=== PATIENT | male | born 1970 | race African-American/Black ===

== ENCOUNTER 2016-06-08 13:55 | Emergency (ER) | payer MEDICARE ==
[2014-08-27 10:08] VITALS: BMI 34.3
[~2016-06-08 13:55] MED LIST: HYDROCODON-ACE1 EAC7 PO; NEXIUM40 MG PO; PRINIVIL20 MG PO; ROBAXIN-750750 MG PO; XANAX1 MG PO
[2016-06-08 16:00] LABS: BASOPHILS 0.6 % (0.0-2.0); HEMOGLOBIN 15.1 g/dL (13.5-17.5); IMMATURE GRANULOCYTES 0.1 % (0-5); LYMPHOCYTES 27.2 % (15-50); MCH 29.3 pg (26.0-34.0); MCHC 32.1 g/dL (31.0-37.0); MCV 91.3 fL (80.0-100.0); MEAN PLATELET VOLUME 10.9 fL (7.4-10.4); MONOCYTES 9.2 % (2-11); NEUTROPHILS 59.9 % (40-80); RBC 5.15 10x6/uL (4.20-6.10); RDW 15.4 % (11.5-14.5)
[2016-06-08 16:01] LABS: PLATELET COUNT 249 10x3/uL (130-400)
[2016-06-08 16:11] LABS: CALC OSMOLALITY 284 mosm/kg (275-300); CALCIUM 8.7 mg/dL (8.5-10.1); CARBON DIOXIDE 29.6 mmol/L (21.0-32.0); CHLORIDE - SERUM 107 mmol/L (98-107); CREATININE - SERUM 1.1 mg/dL (0.6-1.3); GLUCOSE 102 mg/dL (74-106); POTASSIUM - SERUM 3.6 mmol/L (3.5-5.1); SODIUM 144 mmol/L (136-145); UREA NITROGEN 8 mg/dL (7-18); eGFR NON AFRICAN AMERICAN 76 mL/min (90-120)
== END 2016-06-08 17:08 | disposition home or self-care (01) ==
LOC: D.ER 13:55
PROVIDERS: Nurse Practitioner Acute Care
DX: J18.9 Pneumonia, unspecified organism (principal); S80.02XA Contusion of left knee, initial encounter; X58.XXXA Exposure to other specified factors, initial encounter; Y93.89 Activity, other specified; Y92.89 Other specified places as the place of occurrence of the external cause; K21.9 Gastro-esophageal reflux disease without esophagitis; I10 Essential (primary) hypertension; F17.200 Nicotine dependence, unspecified, uncomplicated

== ENCOUNTER 2016-06-18 16:28 | Emergency (ER) | payer MEDICARE ==
[2014-08-27 10:08] VITALS: BMI 34.3
[2016-06-18 19:23] LABS: BASOPHILS 0.2 % (0.0-2.0); EOSINOPHILS 0.1 % (0-7); HEMOGLOBIN 14.8 g/dL (13.5-17.5); IMMATURE GRANULOCYTES 0.3 % (0-5); LYMPHOCYTES 13.4 % (15-50); MCH 29.7 pg (26.0-34.0); MCHC 32.2 g/dL (31.0-37.0); MCV 92.2 fL (80.0-100.0); MONOCYTES 5.9 % (2-11); NEUTROPHILS 80.1 % (40-80); PLATELET COUNT 263 10x3/uL (130-400); RBC 4.99 10x6/uL (4.20-6.10); RDW 15.7 % (11.5-14.5); WBC 8.6 10x3/uL (4.8-10.8)
[2016-06-18 19:43] LABS: ALBUMIN 3.4 g/dL (3.4-5.0); ALKALINE PHOSPHATASE 40 U/L (46-116); ALT (SGPT) 19 U/L (10-68); BILIRUBIN - TOTAL 0.28 mg/dL (0.2-1.3); CALC OSMOLALITY 281 mosm/kg (275-300); CALCIUM 8.9 mg/dL (8.5-10.1); CARBON DIOXIDE 28.3 mmol/L (21.0-32.0); CHLORIDE - SERUM 106 mmol/L (98-107); GLUCOSE 137 mg/dL (74-106); POTASSIUM - SERUM 3.7 mmol/L (3.5-5.1); PROTEIN - SERUM 6.8 g/dL (6.4-8.2); SODIUM 142 mmol/L (136-145); UREA NITROGEN 5 mg/dL (7-18); eGFR NON AFRICAN AMERICAN 85 mL/min (90-120)
[2016-06-18 20:28] LABS: CKMB 0.7 U/L (0.0-3.6); CREATINE KINASE 134 UL (21-232)
[2016-06-18 20:32] LABS: TROPONIN-I < 0.017 ng/mL (0.000-0.060)
== END 2016-06-18 21:45 | disposition home or self-care (01) ==
LOC: D.ER 16:28
PROVIDERS: Nurse Practitioner Family
DX: J45.901 Unspecified asthma with (acute) exacerbation (principal); F17.200 Nicotine dependence, unspecified, uncomplicated; K21.9 Gastro-esophageal reflux disease without esophagitis; I10 Essential (primary) hypertension; R00.1 Bradycardia, unspecified

== ENCOUNTER 2016-08-10 14:56 | Emergency (ER) | payer MEDICARE ==
[2014-08-27 10:08] VITALS: BMI 34.3
== END 2016-08-10 22:24 | disposition home or self-care (01) ==
LOC: D.ER 14:56
DX: S39.012A Strain of muscle, fascia and tendon of lower back, initial encounter (principal); W01.0XXA Fall on same level from slipping, tripping and stumbling without subsequent striking against object, initial encounter; Y93.89 Activity, other specified; Y92.019 Unspecified place in single-family (private) house as the place of occurrence of the external cause; M62.830 Muscle spasm of back; F17.200 Nicotine dependence, unspecified, uncomplicated; K21.9 Gastro-esophageal reflux disease without esophagitis; I10 Essential (primary) hypertension

== ENCOUNTER 2016-08-23 17:38 | Emergency (ER) | payer MEDICARE ==
[2014-08-27 10:08] VITALS: BMI 34.3
[2016-08-23 18:25] LABS: BASOPHILS 0.4 % (0.0-2.0); EOSINOPHILS 0.3 % (0-7); HEMATOCRIT 52.6 % (42.0-54.0); HEMOGLOBIN 17.1 g/dL (13.5-17.5); IMMATURE GRANULOCYTES 0.1 % (0-5); LYMPHOCYTES 12.8 % (15-50); MCH 29.6 pg (26.0-34.0); MCHC 32.5 g/dL (31.0-37.0); MCV 91.2 fL (80.0-100.0); MONOCYTES 3.4 % (2-11); PLATELET COUNT 256 10x3/uL (130-400); RBC 5.77 10x6/uL (4.20-6.10); RDW 15.7 % (11.5-14.5); WBC 7.6 10x3/uL (4.8-10.8)
[2016-08-23 19:05] LABS: ALBUMIN 3.4 g/dL (3.4-5.0); ALKALINE PHOSPHATASE 50 U/L (46-116); ALT (SGPT) 17 U/L (10-68); CALC OSMOLALITY 276 mosm/kg (275-300); CALCIUM 9.4 mg/dL (8.5-10.1); CARBON DIOXIDE 27.1 mmol/L (21.0-32.0); CHLORIDE - SERUM 103 mmol/L (98-107); CREATININE - SERUM 0.9 mg/dL (0.6-1.3); GLUCOSE 122 mg/dL (74-106); POTASSIUM - SERUM 3.6 mmol/L (3.5-5.1); PROTEIN - SERUM 7.1 g/dL (6.4-8.2); SODIUM 139 mmol/L (136-145); UREA NITROGEN 8 mg/dL (7-18); eGFR NON AFRICAN AMERICAN > 90 mL/min (90-120)
[2016-08-23 19:12] LABS: AMYLASE - SERUM 75 U/L (25-115); CREATINE KINASE 77 UL (21-232); LIPASE 53 U/L (73-393); TROPONIN-I < 0.017 ng/mL (0.000-0.060)
== END 2016-08-23 20:54 | disposition home or self-care (01) ==
LOC: D.ER 17:38
PROVIDERS: Emergency Medicine
DX: R11.10 Vomiting, unspecified (principal); J45.909 Unspecified asthma, uncomplicated; K21.9 Gastro-esophageal reflux disease without esophagitis; I10 Essential (primary) hypertension; F17.200 Nicotine dependence, unspecified, uncomplicated

== ENCOUNTER 2017-06-26 10:16 | Emergency (ER) | payer MEDICARE ==
[2014-08-27 10:08] VITALS: BMI 34.3
== END 2017-06-26 11:17 | disposition home or self-care (01) ==
LOC: D.ER 10:16
DX: M25.461 Effusion, right knee (principal); W19.XXXA Unspecified fall, initial encounter; Y93.89 Activity, other specified; Y92.019 Unspecified place in single-family (private) house as the place of occurrence of the external cause; K21.9 Gastro-esophageal reflux disease without esophagitis; I10 Essential (primary) hypertension; F17.200 Nicotine dependence, unspecified, uncomplicated

== ENCOUNTER 2017-07-26 15:53 | Emergency (ER) | payer MEDICARE ==
[2014-08-27 10:08] VITALS: BMI 34.3
== END 2017-07-26 20:00 | disposition home or self-care (01) ==
LOC: D.ER 15:53
DX: S16.1XXA Strain of muscle, fascia and tendon at neck level, initial encounter (principal); W10.9XXA Fall (on) (from) unspecified stairs and steps, initial encounter; Y93.89 Activity, other specified; Y92.019 Unspecified place in single-family (private) house as the place of occurrence of the external cause; S29.012A Strain of muscle and tendon of back wall of thorax, initial encounter; S39.012A Strain of muscle, fascia and tendon of lower back, initial encounter; M62.838 Other muscle spasm; K21.9 Gastro-esophageal reflux disease without esophagitis; I10 Essential (primary) hypertension

== ENCOUNTER 2017-08-14 09:08 | Observation (INO) | payer MEDICARE ==
[2014-08-27 10:08] VITALS: BMI 34.3
[2017-08-14 09:30] LABS: BASOPHILS 0.6 % (0-2); EOSINOPHILS 1.3 % (0-7); HEMATOCRIT 46.2 % (42.0-54.0); HEMOGLOBIN 15.2 g/dL (13.5-17.5); IMMATURE GRANULOCYTES 0.1 % (0-5); MCH 31.3 pg (26.0-34.0); MCHC 32.9 g/dL (31.0-37.0); MCV 95.1 fL (80.0-100.0); MEAN PLATELET VOLUME 11.1 fL (7.4-10.4); PLATELET COUNT 255 10x3/uL (130-400); RBC 4.86 10x6/uL (4.20-6.10); RDW 14.5 % (11.5-14.5); WBC 7.9 10x3/uL (4.8-10.8)
[2017-08-14 09:49] LABS: ALBUMIN 3.6 g/dL (3.4-5.0); ALKALINE PHOSPHATASE 48 U/L (46-116); ALT (SGPT) 78 U/L (10-68); BILIRUBIN - TOTAL 0.36 mg/dL (0.2-1.3); CALC OSMOLALITY 281 mosm/kg (275-300); CALCIUM 9.1 mg/dL (8.5-10.1); CARBON DIOXIDE 29.6 mmol/L (21.0-32.0); CHLORIDE - SERUM 105 mmol/L (98-107); CREATININE - SERUM 0.9 mg/dL (0.6-1.3); GLUCOSE 81 mg/dL (74-106); POTASSIUM - SERUM 4.6 mmol/L (3.5-5.1); PROTEIN - SERUM 7.5 g/dL (6.4-8.2); SODIUM 142 mmol/L (136-145); UREA NITROGEN 12 mg/dL (7-18); eGFR NON AFRICAN AMERICAN > 90 mL/min (90-120)
[2017-08-14 09:57] LABS: APPEARANCE CLEAR (CLEAR); BILIRUBIN NEGATIVE (NEGATIVE); COLOR STRAW (YELLOW); GLUCOSE NEGATIVE (NEGATIVE); KETONE NEGATIVE (NEGATIVE); NITRITE NEGATIVE (NEGATIVE); PROTEIN NEGATIVE (NEGATIVE); SPECIFIC GRAVITY 1.005 (1.005-1.020); UROBILINOGEN NORMAL (NORMAL)
[2017-08-14 10:15] LABS: UDS - AMPHET POSITIVE QUAL (NEGATIVE); UDS - BARB NEGATIVE QUAL (NEGATIVE); UDS - BENZO NEGATIVE QUAL (NEGATIVE); UDS - COCAINE POSITIVE QUAL (NEGATIVE); UDS - OPIATE NEGATIVE QUAL (NEGATIVE); UDS - PCP NEGATIVE QUAL (NEGATIVE); UDS - THC POSITIVE QUAL (NEGATIVE)
== END 2017-08-14 15:45 | disposition left against medical advice (07) ==
LOC: D.ER 09:08 → OBSVTIME 12:24 → D.EDHOLD 12:24
PROVIDERS: Emergency Medicine
DX: T39.392A Poisoning by other nonsteroidal anti-inflammatory drugs [NSAID], intentional self-harm, initial encounter (principal); R45.851 Suicidal ideations; F32.9 Major depressive disorder, single episode, unspecified; F10.129 Alcohol abuse with intoxication, unspecified; F15.10 Other stimulant abuse, uncomplicated; F14.10 Cocaine abuse, uncomplicated; Y90.5 Blood alcohol level of 100-119 mg/100 ml; F12.10 Cannabis abuse, uncomplicated

== ENCOUNTER 2017-09-02 07:46 | Emergency (ER) | payer MEDICARE ==
[2014-08-27 10:08] VITALS: BMI 34.3
== END 2017-09-02 09:01 | disposition home or self-care (01) ==
LOC: D.ER 07:46
DX: S69.92XA Unspecified injury of left wrist, hand and finger(s), initial encounter (principal); W22.01XA Walked into wall, initial encounter; Y93.89 Activity, other specified; Y92.019 Unspecified place in single-family (private) house as the place of occurrence of the external cause; F17.200 Nicotine dependence, unspecified, uncomplicated

== ENCOUNTER 2017-09-20 09:27 | Emergency (ER) | payer MEDICARE ==
[2014-08-27 10:08] VITALS: BMI 34.3
== END 2017-09-20 11:27 | disposition home or self-care (01) ==
LOC: D.ER 09:27
DX: S81.811A Laceration without foreign body, right lower leg, initial encounter (principal); X58.XXXA Exposure to other specified factors, initial encounter; Y93.89 Activity, other specified; Y92.89 Other specified places as the place of occurrence of the external cause; L03.115 Cellulitis of right lower limb; E11.9 Type 2 diabetes mellitus without complications; I10 Essential (primary) hypertension

== ENCOUNTER 2017-12-18 11:17 | Emergency (ER) | payer MEDICARE ==
[2014-08-27 10:08] VITALS: Ht 177.8 cm; Wt 100.0 kg
[~2017-12-18] VITALS: Ht 177.8 cm; Wt 100.0 kg
[2017-12-18] MEDS ORDERED: GLUCOPHAGE500 MG PO ×2 (11:26→13:58)
[2017-12-18 12:09] LABS: BASOPHILS 0.3 % (0-2); EOSINOPHILS 2.6 % (0-7); HEMATOCRIT 44.2 % (42.0-54.0); HEMOGLOBIN 14.8 g/dL (13.5-17.5); IMMATURE GRANULOCYTES 0.2 % (0-5); MCH 31.6 pg (26.0-34.0); MCHC 33.5 g/dL (31.0-37.0); MCV 94.4 fL (80.0-100.0); MEAN PLATELET VOLUME 11.2 fL (7.4-10.4); MONOCYTES 7.4 % (2-11); NEUTROPHILS 62.5 % (40-80); PLATELET COUNT 210 10x3/uL (130-400); RBC 4.68 10x6/uL (4.20-6.10); RDW 14.3 % (11.5-14.5); WBC 6.6 10x3/uL (4.8-10.8)
[2017-12-18 12:22] LABS: ALBUMIN 3.2 g/dL (3.4-5.0); ALKALINE PHOSPHATASE 41 U/L (46-116); ALT (SGPT) 19 U/L (10-68); BILIRUBIN - TOTAL 0.32 mg/dL (0.2-1.3); CALC OSMOLALITY 277 mosm/kg (275-300); CALCIUM 8.6 mg/dL (8.5-10.1); CARBON DIOXIDE 31.6 mmol/L (21.0-32.0); CHLORIDE - SERUM 105 mmol/L (98-107); GLUCOSE 109 mg/dL (74-106); POTASSIUM - SERUM 3.7 mmol/L (3.5-5.1); PROTEIN - SERUM 6.5 g/dL (6.4-8.2); SODIUM 139 mmol/L (136-145); UREA NITROGEN 11 mg/dL (7-18); eGFR NON AFRICAN AMERICAN 85 mL/min (90-120)
[2017-12-18 12:31] LABS: CKMB 0.6 U/L (0.0-3.6); CREATINE KINASE 143 UL (21-232); TROPONIN-I < 0.017 ng/mL (0.000-0.060)
[2017-12-18] MEDS ORDERED: ULTRAM50 MG PO (13:53)
[2017-12-18 14:52] VITALS: BP 136/88
== END 2017-12-18 14:38 | disposition home or self-care (01) ==
LOC: D.ER 11:17
PROVIDERS: Emergency Medicine
DX: R07.89 Other chest pain (principal); R04.2 Hemoptysis; I10 Essential (primary) hypertension; K21.9 Gastro-esophageal reflux disease without esophagitis; F17.200 Nicotine dependence, unspecified, uncomplicated

== ENCOUNTER 2017-12-25 03:29 | Emergency (ER) | payer MEDICARE ==
[~2017-12-25] VITALS: Ht 177.8 cm; Wt 109.1 kg
[~2017-12-25 03:29] MED LIST changes: +GLUCOPHAGE500 MG PO; +ULTRAM50 MG PO
[2017-12-25 03:34] VITALS: Ht 177.8 cm; Wt 109.1 kg
[2017-12-25] MEDS ORDERED: HYDROCODONE-APA1 TAB PO (03:40)
[2017-12-25] MEDS ORDERED: OMEPRAZOLE40 MG PO (03:41)
[2017-12-25] MEDS ORDERED: KLONOPIN0.5 MG PO (03:41)
[2017-12-25 03:55] LABS: BASOPHILS 0.3 % (0-2); EOSINOPHILS 1.2 % (0-7); HEMATOCRIT 45.3 % (42.0-54.0); HEMOGLOBIN 15.5 g/dL (13.5-17.5); IMMATURE GRANULOCYTES 0.3 % (0-5); LYMPHOCYTES 18.7 % (15-50); MCH 32.1 pg (26.0-34.0); MCHC 34.2 g/dL (31.0-37.0); MCV 93.8 fL (80.0-100.0); MEAN PLATELET VOLUME 10.8 fL (7.4-10.4); MONOCYTES 10.2 % (2-11); NEUTROPHILS 69.3 % (40-80); PLATELET COUNT 215 10x3/uL (130-400); RBC 4.83 10x6/uL (4.20-6.10); RDW 14.5 % (11.5-14.5); WBC 11.8 10x3/uL (4.8-10.8)
[2017-12-25 04:06] LABS: APTT 26.8 SECONDS (22.8-39.4); INR 1.18 (0.85-1.17); PROTIME 14.5 SECONDS (11.6-15.0)
[2017-12-25 04:07] LABS: D-DIMER-QUANTITATIVE < 0.27 ug/mLFEU (0.20-0.54)
[2017-12-25 04:11] LABS: ALBUMIN 3.4 g/dL (3.4-5.0); ALKALINE PHOSPHATASE 45 U/L (46-116); ALT (SGPT) 26 U/L (10-68); CALC OSMOLALITY 277 mosm/kg (275-300); CALCIUM 8.3 mg/dL (8.5-10.1); CARBON DIOXIDE 30.2 mmol/L (21.0-32.0); CHLORIDE - SERUM 106 mmol/L (98-107); CREATININE - SERUM 0.9 mg/dL (0.6-1.3); GLUCOSE 102 mg/dL (74-106); POTASSIUM - SERUM 3.4 mmol/L (3.5-5.1); PROTEIN - SERUM 6.8 g/dL (6.4-8.2); SODIUM 140 mmol/L (136-145); UREA NITROGEN 11 mg/dL (7-18); eGFR NON AFRICAN AMERICAN > 90 mL/min (90-120)
[2017-12-25 04:21] LABS: CKMB 0.6 U/L (0.0-3.6); CREATINE KINASE 114 UL (21-232); PRO BNP 59 pg/mL (0-125); TROPONIN-I < 0.017 ng/mL (0.000-0.060)
[2017-12-25 09:09] LABS: APPEARANCE CLEAR (CLEAR); COLOR YELLOW (YELLOW); SPECIFIC GRAVITY 1.015 (1.005-1.020)
[2017-12-25 09:10] LABS: BILIRUBIN NEGATIVE (NEGATIVE); GLUCOSE NEGATIVE (NEGATIVE); KETONE NEGATIVE (NEGATIVE); NITRITE NEGATIVE (NEGATIVE); PROTEIN NEGATIVE (NEGATIVE); UROBILINOGEN NORMAL (NORMAL)
[2017-12-25 09:11] LABS: BACTERIA FEW /hpf (NONE SEEN); EPITHELIAL CELLS OCC /hpf (0-5); RED CELLS - URINE 0-5 /hpf (0-5); WHITE CELLS - URINE OCC /hpf (0-5)
[2017-12-25 10:57] VITALS: BP 116/62
== END 2017-12-25 10:58 | disposition home or self-care (01) ==
LOC: D.ER 03:29
PROVIDERS: Family Medicine
DX: R07.9 Chest pain, unspecified (principal); I10 Essential (primary) hypertension; F17.200 Nicotine dependence, unspecified, uncomplicated

== ENCOUNTER 2018-01-10 10:13 | Emergency (ER) | payer MEDICARE ==
[~2018-01-10] VITALS: Ht 177.8 cm; Wt 106.8 kg
[~2018-01-10 10:13] MED LIST changes: +HYDROCODONE-APA1 TAB PO; +KLONOPIN0.5 MG PO; +OMEPRAZOLE40 MG PO
[2018-01-10 10:39] VITALS: Ht 177.8 cm; Wt 106.8 kg
[2018-01-10] MEDS ORDERED: NORCO 7.5/325 T1 TA1 PO (12:15)
[2018-01-10 12:40] VITALS: BP 146/86
== END 2018-01-10 12:40 | disposition home or self-care (01) ==
LOC: D.ER 10:13
DX: S89.91XA Unspecified injury of right lower leg, initial encounter (principal); W10.9XXA Fall (on) (from) unspecified stairs and steps, initial encounter; Y93.89 Activity, other specified; Y92.019 Unspecified place in single-family (private) house as the place of occurrence of the external cause; S93.401A Sprain of unspecified ligament of right ankle, initial encounter; E11.9 Type 2 diabetes mellitus without complications; F17.200 Nicotine dependence, unspecified, uncomplicated; M25.571 Pain in right ankle and joints of right foot

== ENCOUNTER 2018-02-08 10:17 | Emergency (ER) | payer MEDICARE ==
[~2018-02-08] VITALS: Ht 177.8 cm; Wt 100.0 kg
[~2018-02-08 10:17] MED LIST changes: +NORCO 7.5/325 T1 TA1 PO
[2018-02-08 10:21] VITALS: Ht 177.8 cm; Wt 100.0 kg
[2018-02-08 11:57] LABS: BASOPHILS 0.4 % (0-2); EOSINOPHILS 1.9 % (0-7); HEMATOCRIT 44.5 % (42.0-54.0); HEMOGLOBIN 15.3 g/dL (13.5-17.5); IMMATURE GRANULOCYTES 0.1 % (0-5); LYMPHOCYTES 23.4 % (15-50); MCH 31.7 pg (26.0-34.0); MCHC 34.4 g/dL (31.0-37.0); MCV 92.1 fL (80.0-100.0); MEAN PLATELET VOLUME 10.3 fL (7.4-10.4); MONOCYTES 5.5 % (2-11); NEUTROPHILS 68.7 % (40-80); PLATELET COUNT 230 10x3/uL (130-400); RBC 4.83 10x6/uL (4.20-6.10); RDW 14.5 % (11.5-14.5); WBC 6.8 10x3/uL (4.8-10.8)
[2018-02-08 12:08] LABS: ALBUMIN 3.4 g/dL (3.4-5.0); ALKALINE PHOSPHATASE 63 U/L (46-116); ALT (SGPT) 25 U/L (10-68); BILIRUBIN - TOTAL 0.52 mg/dL (0.2-1.3); CALC OSMOLALITY 279 mosm/kg (275-300); CALCIUM 8.1 mg/dL (8.5-10.1); CARBON DIOXIDE 26.2 mmol/L (21.0-32.0); CHLORIDE - SERUM 106 mmol/L (98-107); CREATININE - SERUM 0.8 mg/dL (0.6-1.3); GLUCOSE 81 mg/dL (74-106); POTASSIUM - SERUM 3.5 mmol/L (3.5-5.1); PROTEIN - SERUM 6.8 g/dL (6.4-8.2); SODIUM 142 mmol/L (136-145); UREA NITROGEN 6 mg/dL (7-18); eGFR NON AFRICAN AMERICAN > 90 mL/min (90-120)
[2018-02-08 12:09] VITALS: BP 144/91
[2018-02-08 12:19] LABS: AMYLASE - SERUM 34 U/L (25-115); CKMB 1.3 U/L (0.0-3.6); CREATINE KINASE 408 UL (21-232); TROPONIN-I < 0.017 ng/mL (0.000-0.060)
[2018-02-08 12:20] LABS: LIPASE 48 U/L (73-393)
== END 2018-02-08 14:40 | disposition left against medical advice (07) ==
LOC: D.ER 10:17
PROVIDERS: Family Medicine
DX: R07.9 Chest pain, unspecified (principal); I25.10 Atherosclerotic heart disease of native coronary artery without angina pectoris; E11.9 Type 2 diabetes mellitus without complications; K21.9 Gastro-esophageal reflux disease without esophagitis; F17.200 Nicotine dependence, unspecified, uncomplicated

== ENCOUNTER 2019-08-10 11:44 | Inpatient (IN) | payer MEDICARE ==
[~2019-08-10] VITALS: Ht 177.8 cm; Wt 117.9 kg
[2019-08-10 13:13] LABS: BASOPHILS 0.5 % (0-2); EOSINOPHILS 0.8 % (0-7); HEMOGLOBIN 17.9 g/dL (13.5-17.5); IMMATURE GRANULOCYTES 0.2 % (0-5); LYMPHOCYTES 20.4 % (15-50); MCH 31.6 pg (26.0-34.0); MCHC 33.1 g/dL (31.0-37.0); MCV 95.2 fL (80.0-100.0); MEAN PLATELET VOLUME 10.8 fL (7.4-10.4); MONOCYTES 9.7 % (2-11); NEUTROPHILS 68.4 % (40-80); PLATELET COUNT 230 10x3/uL (130-400); RBC 5.67 10x6/uL (4.20-6.10); RDW 15.3 % (11.5-14.5); WBC 6.4 10x3/uL (4.8-10.8)
[2019-08-10 13:21] LABS: CALC OSMOLALITY 275 mosm/kg (275-300); CALCIUM 8.8 mg/dL (8.5-10.1); CARBON DIOXIDE 29.4 mmol/L (21.0-32.0); CHLORIDE - SERUM 98 mmol/L (98-107); CREATININE - SERUM 0.9 mg/dL (0.6-1.3); GLUCOSE 108 mg/dL (74-106); INR 1.21 (0.85-1.17); POTASSIUM - SERUM 3.3 mmol/L (3.5-5.1); PROTIME 15.2 SECONDS (11.6-15.0); SODIUM 139 mmol/L (136-145); UREA NITROGEN 5 mg/dL (7-18); eGFR NON AFRICAN AMERICAN > 90 mL/min (90-120)
[2019-08-10 13:22] LABS: APTT 53.8 SECONDS (22.8-39.4)
[2019-08-10 13:38] LABS: ALBUMIN 3.7 g/dL (3.4-5.0); ALKALINE PHOSPHATASE 72 U/L (30-120); ALT (SGPT) 19 U/L (10-68); BILIRUBIN - TOTAL 0.37 mg/dL (0.2-1.3); CKMB 0.9 U/L (0.0-3.6); CREATINE KINASE 305 UL (21-232); PROTEIN - SERUM 7.7 g/dL (6.4-8.2)
[2019-08-10 13:40] LABS: TROPONIN-I < 0.017 ng/mL (0.000-0.060)
[2019-08-10 14:14] LABS: BILIRUBIN NEGATIVE (NEGATIVE); GLUCOSE NEGATIVE (NEGATIVE); KETONE NEGATIVE (NEGATIVE); NITRITE NEGATIVE (NEGATIVE); SPECIFIC GRAVITY 1.005 (1.005-1.020); UROBILINOGEN NORMAL (NORMAL)
--- NOTE | 2019-08-10 15:05 | NUR ---
REPORT GIVEN TO Edie SULLIVAN RN, UTILIZING SBAR FORMAT AT THIS TIME.
[2019-08-10 15:17] LABS: HEMATOCRIT 51.8 % (42.0-54.0); HEMOGLOBIN 17.2 g/dL (13.5-17.5)
[2019-08-10 15:45] LABS: MAGNESIUM - SERUM 1.7 mg/dL (1.8-2.4)
--- NOTE | 2019-08-10 16:18 | NUR ---
PT REPORTS CHEST PAIN. ADVISED EDP NEW ORDERS GIVEN.
--- NOTE | 2019-08-10 17:00 | NUR ---
ALERT AND ORIENTED X4. LUNGS CTA AND HRRR. ABDOMEN NOTED WITH EPIGASTRIC TENDERNESS ON PALPATION. BOWEL SOUNDS NOTED X4. NO PERIPHEAL EDEMA NOTED. TYLENOL GIVEN FOR 8/10 PAIN LEVEL. ENCOURAGED TO USE CALL LIGHT FOR ASSIST.
[2019-08-10 17:27] VITALS: BP 119/77; BMI 37.3
[2019-08-10 17:53] VITALS: BP 117/74
--- NOTE | 2019-08-10 19:55 | NUR ---
SITTING UP ON SIDE OF BED. ALERT AND ORIENTED X4. RESP EVEN AND NONLABORED. ABD IS DISTENDED AND FIRM. LAST BM 08/09/19. DENIES NAUSEA. C/O EPIGASTRIC PAIN RATING 8. MEDICATED WITH NORCO ORDERED. NO TELEMETRY AVAILABLE AT THIS TIME. AMBULATORY. NO EDEMA. MVI @ 125 ML/HR INFUSING IN RT HAND WITH PROTONIX @ 10 MLHR. SIG OTHER AT BEDSIDE. CL IN REACH. REQUESTING SNACKS.
[2019-08-10 20:00] VITALS: BP 150/74
--- NOTE | 2019-08-10 20:30 | NUR ---
TOOK SHOWER AT THIS TIME.
[2019-08-10 21:31] LABS: HEMATOCRIT 46.9 % (42.0-54.0); HEMOGLOBIN 15.8 g/dL (13.5-17.5)
--- NOTE | 2019-08-10 22:00 | NUR ---
INFORMED PT OF NEED FOR URINE SPECIMEN. HE VERBALIZED UNDERSTANDING. URINAL AND SPECIMEN CUP IN ROOM.
[2019-08-10 22:11] LABS: CKMB 0.7 U/L (0.0-3.6); CREATINE KINASE 230 UL (21-232)
[2019-08-10 22:17] LABS: TROPONIN-I < 0.017 ng/mL (0.000-0.060)
[2019-08-11] VITALS: BP 147/68
--- NOTE | 2019-08-11 02:20 | NUR ---
LYING ON RT SIDE IN BED. HAS RESTED WELL SINCE MIDNIGHT. NO N/V. HAS BEEN TOLERATING CLEAR LIQ DIET. NO DISTRESS. SIG OTHER AT BEDSIDE. CL IN REACH
[2019-08-11 04:00] VITALS: BP 152/70
--- NOTE | 2019-08-11 04:06 | NUR ---
LYING IN BED WITH EYES CLOSED. RESP NONLABORED. NO DISTRESS. HAS RESTED WELL TONIGHT. NO VOMITING SO FAR. CL IN REACH.
--- NOTE | 2019-08-11 05:58 | NUR ---
PT HAS NOT PROVIDED URINE SPECIMEN REQUESTED.
[2019-08-11 06:47] LABS: BASOPHILS 0.5 % (0-2); EOSINOPHILS 2.1 % (0-7); HEMATOCRIT 47.4 % (42.0-54.0); HEMOGLOBIN 15.4 g/dL (13.5-17.5); IMMATURE GRANULOCYTES 0.2 % (0-5); LYMPHOCYTES 36.8 % (15-50); MCH 30.7 pg (26.0-34.0); MCHC 32.5 g/dL (31.0-37.0); MCV 94.4 fL (80.0-100.0); MEAN PLATELET VOLUME 9.9 fL (7.4-10.4); MONOCYTES 9.7 % (2-11); NEUTROPHILS 50.7 % (40-80); PLATELET COUNT 196 10x3/uL (130-400); RBC 5.02 10x6/uL (4.20-6.10); RDW 15.4 % (11.5-14.5); WBC 6.2 10x3/uL (4.8-10.8)
--- NOTE | 2019-08-11 07:05 | NUR ---
ALERT AND ORIENTED. FAMILY AT BEDSIDE. NO C/O PAIN. NO S/S OF ACUTE DISTRESS NOTED. ABDOMEN DISTENDED. IV TO RIGHT HAND, NS WITH 20K+ INFUSING @ 125ML/HR AND PROTONIX DRIP. SITE PATENT WITHOUT REDNESS OR SWELLING. ACHS. DENIES ANY NEEDS AT THIS TIME. CALL LIGHT IN REACH. WILL CONTINUE TO MONITOR.
[2019-08-11 08:45] LABS: ALBUMIN 2.9 g/dL (3.4-5.0); ALKALINE PHOSPHATASE 55 U/L (30-120); ALT (SGPT) 19 U/L (10-68); BILIRUBIN - TOTAL 0.53 mg/dL (0.2-1.3); CALC OSMOLALITY 280 mosm/kg (275-300); CALCIUM 7.8 mg/dL (8.5-10.1); CARBON DIOXIDE 26.1 mmol/L (21.0-32.0); CHLORIDE - SERUM 106 mmol/L (98-107); CKMB 0.6 U/L (0.0-3.6); CREATINE KINASE 199 UL (21-232); CREATININE - SERUM 0.9 mg/dL (0.6-1.3); GLUCOSE 102 mg/dL (74-106); POTASSIUM - SERUM 3.4 mmol/L (3.5-5.1); PROTEIN - SERUM 5.8 g/dL (6.4-8.2); SODIUM 142 mmol/L (136-145); TROPONIN-I < 0.017 ng/mL (0.000-0.060); eGFR NON AFRICAN AMERICAN > 90 mL/min (90-120)
[2019-08-11 08:46] LABS: UREA NITROGEN 7 mg/dL (7-18)
[2019-08-11 09:14] VITALS: BP 117/71
--- NOTE | 2019-08-11 12:25 | NUR ---
AT BEDSIDE. PATIENT DENIES NEEDS.CALL LIGHT IN REACH
[2019-08-11 12:52] VITALS: BP 139/93
[2019-08-11 13:45] LABS: HEMOGLOBIN 16.7 g/dL (13.5-17.5)
[2019-08-11 14:04] VITALS: BMI 37.3
[2019-08-11 14:49] VITALS: Ht 177.8 cm; Wt 117.9 kg
[2019-08-11 15:23] LABS: UDS - AMPHET NEGATIVE QUAL (NEGATIVE); UDS - BARB NEGATIVE QUAL (NEGATIVE); UDS - BENZO NEGATIVE QUAL (NEGATIVE); UDS - COCAINE NEGATIVE QUAL (NEGATIVE); UDS - OPIATE NEGATIVE QUAL (NEGATIVE); UDS - PCP NEGATIVE QUAL (NEGATIVE); UDS - THC POSITIVE QUAL (NEGATIVE)
[2019-08-11] MEDS ORDERED: PROTONIX40 MG PO (16:47)
[2019-08-11] MEDS ORDERED: CARAFATE1 G PO (16:48)
--- NOTE | 2019-08-11 18:27 | NUR ---
DISCHARGED PATIENT HOME WITH FAMILY. DISCONTINUED IV, CATHETER TIP INTACT. WENT OVER DISCHARGE INSTRUCTIONS WITH PATIENT, VERBALIZED UNDERSTANDING. DENIES ANYTHING FURTHER.
--- NOTE | 2019-08-13 06:43 | MORECARE ---
CASE MANAGEMENT DISCHARGE SUMMARY PATIENT: MIGUEL A GUTIERREZ UNIT: [id number] ADM DATE: 08/10/19 AGE: 49 : [birth year] SEX: M ROOM/BED: D.Pending sale to [facility] AUTHOR: RAMÍREZ MAIN PHYSICIAN: REFERRING PHYSICIAN: IVET STORM MD DATE OF SERVICE: 08/13/19 Discharge Plan Patient Name: MIGUEL A GUTIERREZ [facility] [facility] 1970 Planned Disposition: Anticipated Discharge Date: Discharge Date: 08/11/2019 Expected LOS: 0 Initial Reviewer: [email or web address] Initial Review Date: 08/13/2019 Generated: 08/13/19 7:43 am Patient Name: MIGUEL A GUTIERREZ Page 54070 at 0643 All edits/amendments must be made on the electronic document DICTATION DATE: 08/13/19 0643 FLIGHT SURVEYOR: NETTIE 08/13/19 0643 RPT#: [id number] DC DATE:08/11/19 STATUS: DIS IN [facility] [address] [place] [place] [address] END OF REPORT
== END 2019-08-11 18:28 | disposition home or self-care (01) | DRG 392 ==
LOC: D.ER 11:44 → D.MS 15:22
PROVIDERS: Emergency Medicine; Internal Medicine Gastroenterology; ADMIT Internal Medicine Nephrology; ATTEND Internal Medicine Nephrology
PROC: 0DB68ZX Excision of Stomach, Via Natural or Artificial Opening Endoscopic, Diagnostic (ICD-10-PCS; principal; 2019-08-11 08:45)
DX: K29.20 Alcoholic gastritis without bleeding (principal); F17.203 Nicotine dependence unspecified, with withdrawal; K22.10 Ulcer of esophagus without bleeding; K92.0 Hematemesis; K21.0 Gastro-esophageal reflux disease with esophagitis; E11.65 Type 2 diabetes mellitus with hyperglycemia; I25.10 Atherosclerotic heart disease of native coronary artery without angina pectoris; I25.2 Old myocardial infarction; I10 Essential (primary) hypertension; M54.9 Dorsalgia, unspecified; F12.90 Cannabis use, unspecified, uncomplicated; E87.6 Hypokalemia; E83.42 Hypomagnesemia; K44.9 Diaphragmatic hernia without obstruction or gangrene; F10.20 Alcohol dependence, uncomplicated

== ENCOUNTER 2019-10-15 21:55 | Emergency (ER) | payer MEDICARE ==
[~2019-10-15] VITALS: Ht 177.8 cm; Wt 113.6 kg
[~2019-10-15 21:55] MED LIST changes: +CARAFATE1 G PO; +PROTONIX40 MG PO
[2019-10-15 22:04] VITALS: Ht 177.8 cm; Wt 113.6 kg
[2019-10-15 22:23] LABS: BASOPHILS 0.7 % (0-2); EOSINOPHILS 2.9 % (0-7); HEMATOCRIT 51.9 % (42.0-54.0); HEMOGLOBIN 17.2 g/dL (13.5-17.5); LYMPHOCYTES 38.2 % (15-50); MCH 31.9 pg (26.0-34.0); MCHC 33.1 g/dL (31.0-37.0); MCV 96.1 fL (80.0-100.0); MEAN PLATELET VOLUME 10.2 fL (7.4-10.4); MONOCYTES 10.6 % (2-11); NEUTROPHILS 47.6 % (40-80); PLATELET COUNT 192 10x3/uL (130-400); RDW 15.8 % (11.5-14.5); WBC 5.6 10x3/uL (4.8-10.8)
[2019-10-15 22:30] LABS: APTT 25.8 SECONDS (22.8-39.4); INR 1.14 (0.85-1.17); PROTIME 14.6 SECONDS (11.6-15.0)
[2019-10-15 22:59] LABS: ALBUMIN 3.5 g/dL (3.4-5.0); ALKALINE PHOSPHATASE 73 U/L (30-120); ALT (SGPT) 43 U/L (10-68); BILIRUBIN - TOTAL 0.51 mg/dL (0.2-1.3); CALC OSMOLALITY 277 mosm/kg (275-300); CALCIUM 8.4 mg/dL (8.5-10.1); CARBON DIOXIDE 27.5 mmol/L (21.0-32.0); CHLORIDE - SERUM 102 mmol/L (98-107); CREATINE KINASE 407 UL (21-232); GLUCOSE 106 mg/dL (74-106); LIPASE 29 U/L (73-393); MAGNESIUM - SERUM 2.1 mg/dL (1.8-2.4); PRO BNP 9 pg/mL (0-125); PROTEIN - SERUM 7.2 g/dL (6.4-8.2); SODIUM 141 mmol/L (136-145); TROPONIN-I < 0.017 ng/mL (0.000-0.060); UREA NITROGEN 5 mg/dL (7-18); eGFR NON AFRICAN AMERICAN 84 mL/min (90-120)
[2019-10-15 23:01] LABS: POTASSIUM - SERUM 2.9 mmol/L (3.5-5.1)
[2019-10-15 23:02] LABS: CKMB 1.9 U/L (0.0-3.6)
[2019-10-15 23:55] VITALS: BP 145/89
== END 2019-10-15 23:55 ==
LOC: D.ER 21:55
PROVIDERS: Family Medicine
DX: R07.9 Chest pain, unspecified (principal); R55 Syncope and collapse; E11.9 Type 2 diabetes mellitus without complications; J45.909 Unspecified asthma, uncomplicated; I25.2 Old myocardial infarction; K21.9 Gastro-esophageal reflux disease without esophagitis; Z79.84 Long term (current) use of oral hypoglycemic drugs

== ENCOUNTER 2020-01-05 16:35 | Inpatient (IN) | payer MEDICARE ==
[~2020-01-05] VITALS: Ht 177.8 cm; Wt 106.8 kg
--- NOTE | 2020-01-05 17:17 | NUR ---
PT STATES HE INGESTED 20 MCG METH, 3-4 MARIJUANA BLUNTS, 3-4 PINTS LIQUOR IN EFFORT TO KILL HIMSELF.
--- NOTE | 2020-01-05 17:19 | NUR ---
CALLED POISON CONTROL AND SPOKE WITH JON. REPORTED TO FARRUKH BANUELOS. WAS TOLD TO MONITOR CARDIAC SYMPTOMS, SHAKES, TREMORS, COMBATIVENESS, TWITCHING AND TO TREAT WITH IV HYDRATION, IV ATIVAN NECESSARY FOR SYMPTOMS. FULL CARDIAC WORKUP/ CHECK ACETAMINOPHEN AND SALYCILATES. DO NOT GIVE GEODON OR HALDOL MONITOR CK AND TEMP. COOL AGGRESSIVELY IF HYPERTHERMIC. AVOID BETA BLOCKERS IF HYPERTENSIVE. GIVE ACTIVATED CHARCOAL WITH SORBITOL
[2020-01-05 17:26] VITALS: BP 135/87
--- NOTE | 2020-01-05 17:30 | NUR ---
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
--- NOTE | 2020-01-05 17:45 | NUR ---
PTS BELONGINGS REMOVED/SECURED. PT IN DIRECT/CONTINUOUS OBS FOR SAGETY. ALL LIGATURE RISKS REMOVED.
--- NOTE | 2020-01-05 17:46 | NUR ---
PT HAS A HX OF DRUG USE AND DID TAKE METH, SMOKED WEED AND DRANK ALCOHOL TODAY PRIOR TO COMING INTO THE HOSPITAL. PT REFUSED TO AGREE TO SAFETY PLAN. PT WAS GOING TO SHOOT SELF BUT A FRIEND TOOK THE GUN FROM HIM AND BROUGHT HIM TO THE HOSPITAL. PT IS TEARFUL AND EASILY AGITATED. PT STATED, "IF YOU LET ME GO, I WILL KILL MYSELF, AND NEXT TIME I WON'T TELL ANYONE." PT IS A MODERATE RISK BUT PER DR. STODDARD A SITTER IS NEEDED.
[2020-01-05 17:47] LABS: BASOPHILS 0.8 % (0-2); EOSINOPHILS 2.2 % (0-7); HEMATOCRIT 46.9 % (42.0-54.0); HEMOGLOBIN 15.6 g/dL (13.5-17.5); IMMATURE GRANULOCYTES 0.1 % (0-5); LYMPHOCYTES 27.3 % (15-50); MCH 32.4 pg (26.0-34.0); MCHC 33.3 g/dL (31.0-37.0); MCV 97.5 fL (80.0-100.0); MEAN PLATELET VOLUME 10.1 fL (7.4-10.4); MONOCYTES 6.7 % (2-11); NEUTROPHILS 62.9 % (40-80); RBC 4.81 10x6/uL (4.20-6.10); RDW 15.5 % (11.5-14.5); WBC 7.4 10x3/uL (4.8-10.8)
[2020-01-05 17:56] LABS: PLATELET COUNT 277 10x3/uL (130-400)
[2020-01-05 18:15] LABS: ALBUMIN 3.7 g/dL (3.4-5.0); ALKALINE PHOSPHATASE 80 U/L (30-120); ALT (SGPT) 30 U/L (10-68); BILIRUBIN - TOTAL 0.27 mg/dL (0.2-1.3); CALC OSMOLALITY 274 mosm/kg (275-300); CALCIUM 8.9 mg/dL (8.5-10.1); CARBON DIOXIDE 28.1 mmol/L (21.0-32.0); CHLORIDE - SERUM 103 mmol/L (98-107); CKMB 0.7 U/L (0.0-3.6); CREATINE KINASE 216 UL (21-232); GLUCOSE 84 mg/dL (74-106); MAGNESIUM - SERUM 1.8 mg/dL (1.8-2.4); PROTEIN - SERUM 7.6 g/dL (6.4-8.2); SODIUM 140 mmol/L (136-145); TROPONIN-I < 0.017 ng/mL (0.000-0.060); UREA NITROGEN 5 mg/dL (7-18); eGFR NON AFRICAN AMERICAN 84 mL/min (90-120)
[2020-01-05 18:21] LABS: POTASSIUM - SERUM 2.9 mmol/L (3.5-5.1)
[2020-01-05 18:25] LABS: UDS - AMPHET POSITIVE QUAL (NEGATIVE); UDS - BARB NEGATIVE QUAL (NEGATIVE); UDS - BENZO NEGATIVE QUAL (NEGATIVE); UDS - COCAINE NEGATIVE QUAL (NEGATIVE); UDS - OPIATE NEGATIVE QUAL (NEGATIVE); UDS - PCP NEGATIVE QUAL (NEGATIVE); UDS - THC POSITIVE QUAL (NEGATIVE)
[2020-01-05 18:27] LABS: APTT 27.6 SECONDS (22.8-39.4); INR 1.08 (0.85-1.17); PROTIME 13.9 SECONDS (11.6-15.0)
[2020-01-05 18:46] LABS: BILIRUBIN NEGATIVE (NEGATIVE); GLUCOSE NEGATIVE (NEGATIVE); KETONE NEGATIVE (NEGATIVE); NITRITE POSITIVE (NEGATIVE); UROBILINOGEN NORMAL (NORMAL)
[2020-01-05 18:47] LABS: BACTERIA FEW /hpf (NEGATIVE); EPITHELIAL CELLS 0-5 /hpf (0-5); RED CELLS - URINE 0-5 /hpf (0-5)
[2020-01-05 18:50] VITALS: BP 135/82
--- NOTE | 2020-01-05 19:03 | NUR ---
BS REPORT TO ARON ENRIQUEZ
[2020-01-05 19:06] VITALS: BP 135/82
--- NOTE | 2020-01-05 21:32 | NUR ---
REC'D PATIENT FROM ER. PATIENT WAS TEARFUL DURING ADMISSION PROCESS. PATIENT STATES HE STILL FEELS SUICIDAL. PATIENT EATING SANDWICH AND DENIES OTHER NEEDS AT THIS TIME. BED IN LOWEST POSITION AND CALL LIGHT WITHIN REACH. ENCOURAGED THE PATIENT TO CALL IF HE HAS NEEDS. WILL CONTINUE TO MONITOR. SITTER WATCHING PATIENT AT THIS TIME.
[2020-01-05 21:48] VITALS: BP 119/72; BMI 33.7
[2020-01-06] VITALS: BP 119/72
[2020-01-06 01:39] LABS: CKMB 0.6 U/L (0.0-3.6); CREATINE KINASE 167 UL (21-232); TROPONIN-I 0.028 ng/mL (0.000-0.060)
[2020-01-06 04:00] VITALS: BP 142/91
[2020-01-06 06:05] LABS: BASOPHILS 0.6 % (0-2); EOSINOPHILS 3.1 % (0-7); HEMATOCRIT 43.7 % (42.0-54.0); HEMOGLOBIN 14.3 g/dL (13.5-17.5); IMMATURE GRANULOCYTES 0.2 % (0-5); LYMPHOCYTES 33.5 % (15-50); MCH 31.6 pg (26.0-34.0); MCHC 32.7 g/dL (31.0-37.0); MCV 96.7 fL (80.0-100.0); MEAN PLATELET VOLUME 11.1 fL (7.4-10.4); MONOCYTES 8.5 % (2-11); NEUTROPHILS 54.1 % (40-80); PLATELET COUNT 259 10x3/uL (130-400); RBC 4.52 10x6/uL (4.20-6.10); RDW 15.6 % (11.5-14.5); WBC 6.4 10x3/uL (4.8-10.8)
[2020-01-06 06:34] LABS: ALBUMIN 2.9 g/dL (3.4-5.0); ALKALINE PHOSPHATASE 70 U/L (30-120); ALT (SGPT) 23 U/L (10-68); BILIRUBIN - TOTAL 0.31 mg/dL (0.2-1.3); CALC OSMOLALITY 276 mosm/kg (275-300); CALCIUM 8.2 mg/dL (8.5-10.1); CHLORIDE - SERUM 106 mmol/L (98-107); CREATININE - SERUM 0.8 mg/dL (0.6-1.3); GLUCOSE 73 mg/dL (74-106); MAGNESIUM - SERUM 1.6 mg/dL (1.8-2.4); PROTEIN - SERUM 6.2 g/dL (6.4-8.2); SODIUM 141 mmol/L (136-145); UREA NITROGEN 4 mg/dL (7-18); eGFR NON AFRICAN AMERICAN > 90 mL/min (90-120)
[2020-01-06 06:44] LABS: POTASSIUM - SERUM 3.5 mmol/L (3.5-5.1)
[2020-01-06 08:00] VITALS: BP 146/90
[2020-01-06 08:31] LABS: CKMB 0.8 U/L (0.0-3.6); CREATINE KINASE 149 UL (21-232)
[2020-01-06 08:32] LABS: TROPONIN-I < 0.017 ng/mL (0.000-0.060)
--- NOTE | 2020-01-06 09:00 | NUR ---
ASSESSMENT PER FLOW SHEET. PATIENT IS WITHOUT DISTRESS.MEDS ORDERED PER MAR FOR ANXIETY AND PAIN.DOOR OPEN SITTER IN [place].
[2020-01-06 09:38] VITALS: Ht 177.8 cm; Wt 106.8 kg
[2020-01-06 12:00] VITALS: BP 153/86
[2020-01-06 16:00] VITALS: BP 118/74
--- NOTE | 2020-01-06 17:48 | NUR ---
UP TO SHOWER,DOOR OPEN. REMAINS WITHOUT NEEDS,WITHOUT CHANGE.CONT PLAN OF CARE
--- NOTE | 2020-01-06 18:33 | NUR ---
IV RIGHT AC LEAKING AFTER SHOWER. IV DCD WITH CATH TIP INTACT.IV RESITED TO LEFT HAND X1 STICK USING ASEPTIC TECH 22G.
--- NOTE | 2020-01-06 19:28 | NUR ---
ASSUMED CARE OF PATIENT AT 1900, PATIENT AAOX4, RESTING QUIETLY WITH EYES CLOSED, AWAKENS TO VERBAL STIMULI, NO DISTRESS NOTED, DENIES NEEDS AT THIS TIME, SITTER AT BEDSIDE, WILL CONTINUE TO MONITOR PATIENT, CALL LIGHT WITHIN REACH
[2020-01-06 20:00] VITALS: BP 158/105
--- NOTE | 2020-01-07 00:37 | NUR ---
PATIENT C/O BEING DIAPHORETIC, BLOOD SUGAR WAS 112, NO OTHER COMPLAINTS VOICED, WILL CONTINUE TO MONITOR PATIENT, CALL LIGHT WITHIN REACH
[2020-01-07 04:00] VITALS: BP 171/99
[2020-01-07 07:59] LABS: ALBUMIN 3.1 g/dL (3.4-5.0); ALKALINE PHOSPHATASE 72 U/L (30-120); ALT (SGPT) 23 U/L (10-68); BILIRUBIN - TOTAL 0.52 mg/dL (0.2-1.3); CALC OSMOLALITY 273 mosm/kg (275-300); CALCIUM 8.9 mg/dL (8.5-10.1); CARBON DIOXIDE 25.9 mmol/L (21.0-32.0); CHLORIDE - SERUM 104 mmol/L (98-107); CREATININE - SERUM 0.8 mg/dL (0.6-1.3); GLUCOSE 93 mg/dL (74-106); MAGNESIUM - SERUM 1.7 mg/dL (1.8-2.4); POTASSIUM - SERUM 3.7 mmol/L (3.5-5.1); PROTEIN - SERUM 6.8 g/dL (6.4-8.2); SODIUM 138 mmol/L (136-145); eGFR NON AFRICAN AMERICAN > 90 mL/min (90-120)
[2020-01-07 08:00] LABS: UREA NITROGEN 6 mg/dL (7-18)
[2020-01-07 08:57] LABS: BASOPHILS 0.8 % (0-2); EOSINOPHILS 3.1 % (0-7); HEMATOCRIT 48.5 % (42.0-54.0); HEMOGLOBIN 16.3 g/dL (13.5-17.5); IMMATURE GRANULOCYTES 0.2 % (0-5); LYMPHOCYTES 29.3 % (15-50); MCH 32.7 pg (26.0-34.0); MCHC 33.6 g/dL (31.0-37.0); MCV 97.4 fL (80.0-100.0); MEAN PLATELET VOLUME 11.5 fL (7.4-10.4); MONOCYTES 6.9 % (2-11); NEUTROPHILS 59.7 % (40-80); PLATELET COUNT 231 10x3/uL (130-400); RBC 4.98 10x6/uL (4.20-6.10); RDW 15.1 % (11.5-14.5); WBC 6.5 10x3/uL (4.8-10.8)
--- NOTE | 2020-01-07 09:00 | NUR ---
ASSESSMENT PER FLOW SHEET. PATIENT IS WITHOUT DISTRESS.CALL LIGHT IN REACH.
[2020-01-07 09:51] VITALS: BP 147/85
[2020-01-07 13:32] VITALS: BP 148/78
--- NOTE | 2020-01-07 14:44 | NUR ---
PATIENT VERY ANXIOUS AND MOVING IN AROUND IN BED.ALMOST TEARFUL, MEDS ORDERED PER MAR
--- NOTE | 2020-01-07 15:58 | CN ---
PATIENT NAME:MIGUEL A GUTIERREZ MEDICAL RECORD: [id number] : [birth year] LOCATION:D.MS [address] ADMIT DATE: 01/06/20 ACCOUNT: [id number] CONSULTING PHYSICIAN: MAGEN STODDARD MD REFERRING PHYSICIAN: TORRES CEBALLOS MD DATE OF CONSULTATION: 01/06/2020 Psychiatric Evaluation Consultation IDENTIFYING DATA: The patient is 49 years old and he is admitted to the hospital on a voluntary basis. CHIEF COMPLAINT: Suicidal thoughts. HISTORY OF PRESENT ILLNESS: The patient has a long history of depression. He also is an abuser of drugs and alcohol. For the past 2 weeks, he has been hearing voices telling him to kill himself. I am unclear on the circumstances, but apparently he had a gun and was going to shoot himself and a friend took the gun away from him and brought him to the hospital. The patient says that there is a 100% chance that if he is discharged, he will get the gun and shoot himself. He endorses numerous neurovegetative depressive symptoms. There are generalized issues of money and family conflicts that are his principal stressors. He has fairly limited insight about the contributing factors of substance abuse. MENTAL STATUS EXAMINATION: The patient is awake, alert and fully oriented. His mood is depressed. His affect is constricted. Thought processes are goal directed. Memory, concentration, and abstraction abilities are mildly impaired. He denies that he would seek to harm others. He denies current psychotic symptoms, but endorses the suicidal thoughts as stated above. ASSESSMENT: 1. Major depression, severe, recurrent with psychotic features. 2. Polysubstance abuse. PLAN: The patient is in need of acute inpatient psychiatric care. He should be transitioned to an inpatient behavioral unit as soon as it is practical to do so. TRANSINT:[id number] Voice Confirmation ID: [id number] DOCUMENT ID: [id number] MAGEN STODDARD MD at 1558 CC: [id number] DICTATION DATE: 01/06/20 1631 SALES TEAM MANAGER: 01/07/20 0020 ADM IN [place] [id number] [place] [address]
--- NOTE | 2020-01-07 15:58 | MORECARE ---
CASE MANAGEMENT DISCHARGE SUMMARY PATIENT: MIGUEL A GUTIERREZ UNIT: [id number] ADM DATE: 01/06/20 AGE: 49 : [birth year] SEX: M ROOM/BED: D.2229 AUTHOR: RAMÍREZ MAIN PHYSICIAN: REFERRING PHYSICIAN: TORRES CEBALLOS MD DATE OF SERVICE: 01/07/20 Discharge Plan Patient Name: MIGUEL A GUTIERREZ Facility: [facility]:[place] : 1970 Planned Disposition: Anticipated Discharge Date: Discharge Date: Expected LOS: Initial Reviewer: [email or web address] Initial Review Date: 01/05/2020 Generated: 01/07/20 4:57 pm Patient Name: MIGUEL A GUTIERREZ Page [phone] at 1558 All edits/amendments must be made on the electronic document DICTATION DATE: 01/07/20 155 JAVA GROOVY DEVELOPER: NETTIE 01/07/201556 RPT#: [id number] DC DATE: STATUS: ADM IN [facility] [address] [place] [address] END OF REPORT
--- NOTE | 2020-01-07 16:12 | NUR ---
LESS ANXIOUS.DENIES NEEDS.
[2020-01-07 16:45] VITALS: BP 132/84
[2020-01-07 20:00] VITALS: BP 138/93
--- NOTE | 2020-01-08 03:04 | NUR ---
I have reviewed this patient and I concur with the Shift Assessment completed by the Licensed Practical Nurse today this shift.
[2020-01-08 04:00] VITALS: BP 137/94
[2020-01-08 06:09] LABS: BASOPHILS 0.4 % (0-2); EOSINOPHILS 3.5 % (0-7); HEMATOCRIT 43.7 % (42.0-54.0); HEMOGLOBIN 14.5 g/dL (13.5-17.5); IMMATURE GRANULOCYTES 0.3 % (0-5); LYMPHOCYTES 26.2 % (15-50); MCH 32.2 pg (26.0-34.0); MCHC 33.2 g/dL (31.0-37.0); MCV 97.1 fL (80.0-100.0); MEAN PLATELET VOLUME 10.8 fL (7.4-10.4); MONOCYTES 7.9 % (2-11); NEUTROPHILS 61.7 % (40-80); PLATELET COUNT 228 10x3/uL (130-400); RDW 14.9 % (11.5-14.5); WBC 7.6 10x3/uL (4.8-10.8)
[2020-01-08 07:10] LABS: ALBUMIN 2.7 g/dL (3.4-5.0); ALKALINE PHOSPHATASE 57 U/L (30-120); ALT (SGPT) 20 U/L (10-68); BILIRUBIN - TOTAL 0.27 mg/dL (0.2-1.3); CALCIUM 8.4 mg/dL (8.5-10.1); CARBON DIOXIDE 25.1 mmol/L (21.0-32.0); CHLORIDE - SERUM 104 mmol/L (98-107); CREATININE - SERUM 0.8 mg/dL (0.6-1.3); GLUCOSE 99 mg/dL (74-106); MAGNESIUM - SERUM 1.7 mg/dL (1.8-2.4); POTASSIUM - SERUM 3.9 mmol/L (3.5-5.1); PROTEIN - SERUM 5.5 g/dL (6.4-8.2); SODIUM 137 mmol/L (136-145); eGFR NON AFRICAN AMERICAN > 90 mL/min (90-120)
[2020-01-08 07:11] LABS: CALC OSMOLALITY 272 mosm/kg (275-300); UREA NITROGEN 11 mg/dL (7-18)
--- NOTE | 2020-01-08 07:15 | NUR ---
REC'D IN BED AWAKE AND ALERT. RESP EVEN UNLABORED WITH NO DISTRESS NOTED. CAN EXPRESS NEEDS AND WANTS. TURN AND REPOSITION SELF AB FERNANDO. INQUIRED ABOUT NEXT PAIN MEDICATION WHEN IS DUE THIS NURSE INFORMED HIM AT 10:30. ASSESSMENT COMPLETED. C/L IN REACH AT BEDSIDE.
[2020-01-08 09:12] VITALS: BP 144/93
--- NOTE | 2020-01-08 10:59 | NUR ---
WAS MEDCIATED WITH MORPINE AT THIS TIME FOR C/O GENERALIZED PAIN. C/L IN REACH A BEDSIDE.
--- NOTE | 2020-01-08 12:08 | MORECARE ---
CASE MANAGEMENT DISCHARGE SUMMARY PATIENT: MIGUEL A GUTIERREZ UNIT: [id number] ADM DATE: 01/06/20 AGE: 49 : [birth year] SEX: M ROOM/BED: D.2229 AUTHOR: RAMÍREZ MAIN PHYSICIAN: REFERRING PHYSICIAN: TORRES CEBALLOS MD DATE OF SERVICE: 01/08/20 Discharge Plan Patient Name: MIGUEL A GUTIERREZ Facility: [facility]:[place] : 1970 Planned Disposition: Anticipated Discharge Date: Discharge Date: Expected LOS: Initial Reviewer: [email or web address] Initial Review Date: 01/05/2020 Generated: 01/08/20 1:08 pm External Providers External Provider: [facility] (Inpt Adult Psych) Next Contact Date: Service Request Date: Service Type: Resolution: Reviewer: Comments: Last DP export: 01/07/20 2:58 pm Patient Name: MIGUEL A GUTIERREZ Page [phone] at 1208 All edits/amendments must be made on the electronic document DICTATION DATE: 01/08/20 1208 BOX TRUCK OWNER OPERATOR: NETTIE 01/08/20 1208 RPT#: [id number] DC DATE: STATUS: ADM IN [facility] [address] [place] [address] END OF REPORT
--- NOTE | 2020-01-08 12:25 | MORECARE ---
CASE MANAGEMENT DISCHARGE SUMMARY PATIENT: MIGUEL A GUTIERREZ UNIT: [id number] ADM DATE: 01/06/20 AGE: 49 : [birth year] SEX: M ROOM/BED: D.2229 AUTHOR: RAMÍREZ MAIN PHYSICIAN: REFERRING PHYSICIAN: TORRES CEBALLOS MD DATE OF SERVICE: 01/08/20 Discharge Plan Patient Name: MIGUEL A GUTIERREZ Facility: [facility]:[place] : 1970 Planned Disposition: Psych facility Anticipated Discharge Date: Discharge Date: Expected LOS: Initial Reviewer: [email or web address] Initial Review Date: 01/05/2020 Generated: 01/08/20 1:25 pm Comments DCP- Discharge Planning Updated by [email or web address]: Paola Coello on 01/08/20 11:[address] Patient Name: MIGUEL A GUTIERREZ Admission Status: ER Accout number: [id number] Admission Date: 01-06-2020 : 1970 Admission Diagnosis: Attending: CHRISTY Current LOS: 2 Anticipated DC Date: Planned Disposition: Primary Insurance: MEDICARE A & B Discharge Planning Comments: PATIENT IS MEDICALLY STABLE AND NEEDS IPPSYCH FACILITY. REFERRAL FAXED TO [facility]. WAITING CALL BACK. River Pilot: Paola Coello Last DP export: 01/08/20 11:08 am Patient Name: MIGUEL A GUTIERREZ Page 12985 at 1225 All edits/amendments must be made on the electronic document DICTATION DATE: 01/08/20 1225 COAT REPAIR INSPECTOR: NETTIE 01/08/20 1225 RPT#: [id number] DC DATE: STATUS: ADM IN [facility] [address] [place] [address] END OF REPORT
--- NOTE | 2020-01-08 13:03 | NUR ---
WAS MEDICATED WITH ATIVAN AT THIS TIME D/T PT REQUEST. C/L IN REACH AT BEDSIDE.
--- NOTE | 2020-01-08 15:05 | NUR ---
WAS MEDICATED WITH MORPHINE FOR C/O PAIN AT THIS TIME. C/L IN REACH AT BEDSIDE.
[2020-01-08 16:00] VITALS: BP 103/62; BP 123/83
--- NOTE | 2020-01-08 16:33 | MORECARE ---
CASE MANAGEMENT DISCHARGE SUMMARY PATIENT: MIGUEL A GUTIERREZ UNIT: [id number] ADM DATE: 01/06/20 AGE: 49 : 68 SEX: M ROOM/BED: D.2229 AUTHOR: RAMÍREZ MAIN PHYSICIAN: REFERRING PHYSICIAN: TORRES CEBALLOS MD DATE OF SERVICE: 01/08/20 Discharge Plan Patient Name: MIGUEL A GUTIERREZ Facility: [facility]:[place] : 1970 Planned Disposition: Psych facility Anticipated Discharge Date: Discharge Date: Expected LOS: Initial Reviewer: [email or web address] Initial Review Date: 01/05/2020 Generated: 01/08/20 5:32 pm DCP- Discharge Planning Updated by [email or web address]: Paola Coello on 01/08/20 3:[address] Patient Name: MIGUEL A GUTIERREZ Admission Status: ER Accout number: [id number] Admission Date: 01-06-2020 : 1970 Admission Diagnosis: Attending: CHRISTY Current LOS: 2 Anticipated DC Date: Planned Disposition: Psych facility Primary Insurance: MEDICARE A & B Discharge Planning Comments: SPOKE WITH [facility] AND THE DOCTOR THEIR NEEDS MORE INFORMATION STATING HIS CARDIAC ISSUES ARE NOT A CONCERN. I FAXED RECENT DOCUMENTS TO [facility] AT [phone], THEIR PHONE NUMBER IS [phone]. Batteryman: Paola Coello DCP- Discharge Planning Updated by [email or web address]: Paola Coello on 01/08/20 11:[address] Patient Name: MIGUEL A GUTIERREZ Admission Status: ER Accout number: [id number] Admission Date: 01-06-2020 : 1970 Admission Diagnosis: Attending: CHRISTY Current LOS: 2 Anticipated DC Date: Planned Disposition: Primary Insurance: MEDICARE A & B Discharge Planning Comments: PATIENT IS MEDICALLY STABLE AND NEEDS IPPSYCH FACILITY. REFERRAL FAXED TO [facility]. WAITING CALL BACK. Batteryman: Paola Coello Last DP export: 01/08/20 11:25 am Patient Name: MIGUEL A GUTIERREZ Page 31043 at 1633 All edits/amendments must be made on the electronic document DICTATION DATE: 01/08/20 163 BRANCH ACCOUNT EXECUTIVE: NETTIE 01/08/20 163 RPT#: [id number] DC DATE: STATUS: ADM IN [facility] [address] [place] [address] END OF REPORT
[2020-01-08] MEDS ORDERED: ZOLOFT50 MG PO (17:58)
--- NOTE | 2020-01-08 18:31 | NUR ---
REPORT WAS CALLED TO PATY CASH AT [facility] AT THIS TIME. PT WILL BE TRANSPORT VIA AMBULANCE TO HOSPITAL.
--- NOTE | 2020-01-08 18:41 | NUR ---
I have reviewed this patient and I concur with the Shift Assessment completed by the Licensed Practical Nurse today this shift.
[2020-01-08 20:00] VITALS: BP 192/118
--- NOTE | 2020-01-08 22:24 | NUR ---
PT C/O CHEST AND BACK PAIN 01/11. BP 192/118. PT IS VERY ANXIOUS. TRIED TO CALM PT AND PRACTICE DEEP BREATHING. PT WILL NOT COMPLY. CALLED JESSICA OSORIO. GAVE ONE DOSE LISINOPRIL 10 MG, ATIVAN 0.25 MG AND TYLENOL 650 MG PO PER TELEPHONE ORDER. NO OTHER NEEDS. WILL REASSESS AND CONTINUE TO MONITOR.
--- NOTE | 2020-01-08 23:50 | NUR ---
AMBULANCE HERE TO HOSPICE ENTRANCE ATTENDANT PT FOR TRANSFER. PT AMBULATED TO STRETCHER AND LEFT FLOOR WITH EMS.
--- NOTE | 2020-01-09 09:13 | MORECARE ---
CASE MANAGEMENT DISCHARGE SUMMARY PATIENT: MIGUEL A GUTIERREZ UNIT: [id number] ADM DATE: 01/06/20 AGE: 49 : 68 SEX: M ROOM/BED: D.2229 AUTHOR: RAMÍREZ MAIN PHYSICIAN: REFERRING PHYSICIAN: TORRES CEBALLOS MD DATE OF SERVICE: 01/09/20 Discharge Plan Patient Name: MIGUEL A GUTIERREZ Facility: [facility]:[place] : 1970 Planned Disposition: Psych facility Anticipated Discharge Date: Discharge Date: 01/08/2020 Expected LOS: Initial Reviewer: [email or web address] Initial Review Date: 01/05/2020 Generated: 01/09/20 10:12 am DCP- Discharge Planning Updated by [email or web address]: Paola Coello on 01/08/20 3:[address] Patient Name: MIGUEL A GUTIERREZ Admission Status: ER Accout number: [id number] Admission Date: 01-06-2020 : 1970 Admission Diagnosis: Attending: CHRISTY Current LOS: 2 Anticipated DC Date: Planned Disposition: Psych facility Primary Insurance: MEDICARE A & B Discharge Planning Comments: SPOKE WITH [facility] AND THE DOCTOR THEIR NEEDS MORE INFORMATION STATING HIS CARDIAC ISSUES ARE NOT A CONCERN. I FAXED RECENT DOCUMENTS TO [facility] AT [phone], THEIR PHONE NUMBER IS [phone]. Photographic Hand Developer: Paola Coello DCP- Discharge Planning Updated by [email or web address]: Paola Coello on 01/08/20 11:[address] Patient Name: MIGUEL A GUTIERREZ Admission Status: ER Accout number: [id number] Admission Date: 01-06-2020 : 1970 Admission Diagnosis: Attending: CHRISTY Current LOS: 2 Anticipated DC Date: Planned Disposition: Primary Insurance: MEDICARE A & B Discharge Planning Comments: PATIENT IS MEDICALLY STABLE AND NEEDS IPPSYCH FACILITY. REFERRAL FAXED TO [facility]. WAITING CALL BACK. Photographic Hand Developer: Paola Coello Last DP export: 01/08/20 3:33 pm Patient Name: MIGUEL A GUTIERREZ Page 79176 at 0913 All edits/amendments must be made on the electronic document DICTATION DATE: 01/09/20911 MENTAL HEALTH ORDERLY: NETTIE 01/09/20911 RPT#: [id number] DC DATE:01/08/20 STATUS: DIS IN [facility] [address] [address] END OF REPORT
--- NOTE | 2020-01-09 13:20 | PN ---
PATIENT:MIGUEL A GUTIERREZ MEDICAL RECORD: [id number] LOCATION:D.MS [address]222 ADMISSION DATE: 01/06/20 PROGRESS NOTE DATE OF SERVICE: 01/08/2020 SUBJECTIVE: The patient's case was discussed with staff. He has no new complaint. OBJECTIVE: The patient is still profoundly depressed and in need of inpatient psychiatric care. He apparently has no significant underlying medical issues that I can identify, so I am not sure why he has not been transferred. I am going to go ahead and start him on an antidepressant medication. He should remain with a sitter. NTS:[id number] Voice Confirmation ID: [id number] DOCUMENT ID: [id number] MAGEN STODDARD MD at 1320 CC: [id number] DICTATION DATE: 01/08/20 1554 LEAVE SPECIALIST: 01/08/20 2313 DIS IN 01/08/20 [place] [address] [id number] [place] [address]
== END 2020-01-08 23:57 | disposition short-term general hospital (02) | DRG 918 ==
LOC: D.ER 16:35 → D.MS 18:39 → OBSVTIME 18:39 → D.MS 18:39
PROVIDERS: Family Medicine; ADMIT Family Medicine; ATTEND Family Medicine
DX: T43.622A Poisoning by amphetamines, intentional self-harm, initial encounter (principal); F33.3 Major depressive disorder, recurrent, severe with psychotic symptoms; R45.851 Suicidal ideations; F17.203 Nicotine dependence unspecified, with withdrawal; F15.10 Other stimulant abuse, uncomplicated; F10.10 Alcohol abuse, uncomplicated; F12.10 Cannabis abuse, uncomplicated; E11.65 Type 2 diabetes mellitus with hyperglycemia; E87.6 Hypokalemia; I10 Essential (primary) hypertension; I25.10 Atherosclerotic heart disease of native coronary artery without angina pectoris; K21.9 Gastro-esophageal reflux disease without esophagitis; F41.8 Other specified anxiety disorders; G89.29 Other chronic pain; M54.9 Dorsalgia, unspecified; R07.89 Other chest pain; T43.642A Poisoning by ecstasy, intentional self-harm, initial encounter; T51.0X2A Toxic effect of ethanol, intentional self-harm, initial encounter